=== PATIENT | female | born 1975 | race Caucasian/White ===

== ENCOUNTER → 2016-08-31 | Outpatient (CLI) | payer OTHER ==
--- NOTE | 2016-08-31 16:30 | KCIC ---
EXAM: Bilateral digital screening mammogram. HISTORY: 41-year-old female presents for screening mammography. COMPARISON: None. This is a baseline mammogram. TECHNIQUE: Full field digital craniocaudal and mediolateral oblique views of both breasts are obtained. Computer-aided detection is applied. FINDINGS: Breast parenchymal composition: Level C - Heterogeneously dense. There is asymmetric density within the inferior slightly medial aspect of the left breast, likely due to an island of fibroglandular tissue. There also asymmetries within the right breast which do not persist between projections. There are few benign calcifications. There is no architectural distortion. IMPRESSION: BI-RADS Category 0: Needs additional imaging. Further evaluation with spot compression views and a full field true lateral view of the left breast is recommended given the absence of prior studies to confirm stability. The patient will be contacted to return for additional imaging. This study was interpreted with the benefit of Computerized Aided Detection (CAD). Mammography is not 100% sensitive in detecting breast cancer. Therefore, a self breast exam and a clinical breast exam are very important. A negative mammogram does not negate a clinically suspicious finding and should not result in a delay in biopsying a clinically suspicious abnormality. The patient information was entered into the reminder system with a target for her next mammogram. Electronically signed by: Priscilla Howe (Aug 31, 2016 16:29:07)
== END | disposition home or self-care (01) ==
LOC: KCIC MAMMO 15:39
PROVIDERS: ATTEND Nurse Practitioner Family
DX: Z12.31 Encounter for screening mammogram for malignant neoplasm of breast (principal)
CPT/HCPCS: G0202; 77067

== ENCOUNTER → 2016-09-06 | Outpatient (CLI) | payer OTHER ==
--- NOTE | 2016-09-06 16:18 | RAD ---
DATE: 09/06/16 EXAM: Digital diagnostic left mammogram and left breast ultrasound HISTORY: Follow-up asymmetric density in the screening mammogram COMPARISON: Baseline screening mammogram from 08/31/16 Diagnostic left mammogram: This study was interpreted with the benefit of Computerized Aided Detection (CAD). TECHNIQUE: 90 the mediolateral as well as CC and MLO spot compression views of the left breast are obtained. FINDINGS: The area of apparent asymmetric density seen on the screening mammogram does not clearly persist and appears to blend in with the surrounding fibroglandular tissues. Note is made of a tiny nodularity seen more posteriorly in this area. Exam ultrasound to follow. Left breast ultrasound discussion: Targeted sonographic evaluation of the left breast is performed and images are obtained. Normal fibroglandular densities are seen. There is a well-defined round 3.6 x 4.1 x 4.0 mm nodule with fine internal echoes at 8:00 position, 5 cm from the nipple. IMPRESSION: Asymmetric density seen in the screening mammogram appears to blend in with the surrounding fibroglandular tissues. A small nodularity persists. Tiny 3.6 x 4.1 x 4.0 mm nodule with fine internal echoes is seen at 8:00 position, 5 cm from the nipple. This probably represents a complex cyst. Six-month follow-up left breast mammogram and ultrasound may be obtained to ensure interval stability BI-RADS CATEGORY: 3 PROBABLE BENIGN-SHORT TERM F/U RECOMMENDED FOLLOW-UP: 6M 6 MONTH FOLLOW-UP PQRS compliance statement: Patient information was entered into a reminder system with a target due date for the next mammogram. Mammography is a sensitive method for finding small breast cancers, but it does not detect them all and is not a substitute for careful clinical examination. A negative mammogram does not negate a clinically suspicious finding and should not result in delay in biopsying a clinically suspicious abnormality. "Our facility is accredited by the [employer] Mammography [employer]."
== END | disposition home or self-care (01) ==
LOC: KCIC MAMMO 14:17
PROVIDERS: ATTEND Nurse Practitioner Family
DX: R92.8 Other abnormal and inconclusive findings on diagnostic imaging of breast (principal)
CPT/HCPCS: 76641; G0206; 77065

== ENCOUNTER → 2016-11-09 | Outpatient (CLI) | payer OTHER ==
--- NOTE | 2016-11-09 14:38 | KCIC ---
PROCEDURE Lumbar spine radiographs. HISTORY Neuralgia, neuritis, low back pain into the right side for 2 weeks, no known injury COMPARISON None FINDINGS Three views of the lumbar spine are submitted. There is mild to moderate levoscoliosis centered upon the mid lumbar spine. Lumbar vertebral body stature is maintained. AP alignment is adequate. There is facet degenerative change greater inferiorly of the lumbar spine. Intervertebral disc spaces are relatively maintained. There has been cholecystectomy. Small calcification in the inferior left abdomen is more lateral than expected for a ureteral calculus. IMPRESSION 1. There is mild to moderate lumbar levoscoliosis. Electronically signed by: Mykel Bowser MD (Nov 09, 2016 14:37:04)
== END | disposition home or self-care (01) ==
LOC: KCIC 14:10
PROVIDERS: ATTEND Nurse Practitioner Family
DX: M79.2 Neuralgia and neuritis, unspecified (principal); M54.5 Low back pain; M41.86 Other forms of scoliosis, lumbar region
CPT/HCPCS: 72100

== ENCOUNTER → 2017-03-06 | Outpatient (CLI) | payer OTHER ==
[2017-02-26 14:50] VITALS: BP 140/77
[~2017-03-06] MED LIST: ASPI-482 PO; CETI10TA22 PO; CHOL2000 PO
--- NOTE | 2017-03-06 11:34 | KCIC ---
Indication: TIA one week ago. Hypertensive. Technique: Study is dated March 06, 2017. MRI evaluation of the brain was performed using sagittal T1, axial FLAIR, axial T2, axial T1, axial gradient echo, coronal T2, and axial diffusion with ADC mapping sequences. Comparison is a CT head from February 25, 2017. Findings: The ventricles are normal in size and configuration. There is no evidence of mass, mass-effect, hemorrhage, or extra-axial collection. There is no diffusion restriction to suggest acute infarction. The brainstem and posterior fossa are unremarkable. Pituitary gland and suprasellar region are normal. Orbits are normal. There are maxillary retention cysts bilaterally. There is minimal ethmoid mucosal thickening. There are normal intracranial flow-voids. Impression: No acute intracranial findings. Electronically signed by: Louie Belcher MD (03/06/2017 11:31 AM) [id number]
--- NOTE | 2017-03-07 15:36 | KCIC ---
Carotid Doppler dated 03/06/2017. Comparison none. Clinical Indication: Recent TIA.. Findings: Grayscale, color flow and spectral waveform analysis was performed. Mild plaque at the left carotid bifurcation. No focal stenosis. The waveforms are within normal limits. Flow within the bilateral vertebral arteries is antegrade. Velocity measurements are as follows (centimeters per second ) Peak systolic velocity right left ICA 104 101 CCA 72 79 ECA 86 87 ICA/CCA ratio 1.32 1.23 Impression: No evidence of hemodynamically significant carotid stenosis. Stenosis calculations for carotid ultrasound studies are derived from validated velocity criteria which are known to correlate with the NASCET methodology. Electronically signed by: Henry Wiggins MD (03/07/2017 3:33 PM) [id number]
== END | disposition home or self-care (01) ==
LOC: KCIC US 09:49
PROVIDERS: ATTEND Nurse Practitioner Family
DX: G45.9 Transient cerebral ischemic attack, unspecified (principal); I10 Essential (primary) hypertension
CPT/HCPCS: 70551; 93880

== ENCOUNTER → 2017-03-15 | Outpatient (CLI) | payer OTHER ==
[2017-02-26 14:50] VITALS: BP 140/77
--- NOTE | 2017-03-15 13:19 | KCIC ---
Diagnostic digital mammograms left breast: Reason for examination: Follow-up nodular density. Comparison is made to previous study dated 08/31/2016. The skin and nipple show no abnormalities. No abnormal axillary lymph nodes are seen. The breast parenchyma is heterogeneously dense. (Breast density: Category C.) There continues to be some nodular asymmetry at the lower inner quadrant. This will be further evaluated with ultrasound. There are no other dominant masses, suspicious calcifications or architectural distortion. Impression: Continued presence of some nodular asymmetry at the 7:00 B position of the left breast. Ultrasound to follow. Your patient's mammogram demonstrates that she has dense breast tissue (breast density category C or D), which could hide abnormalities, and if she has other risk factors for breast cancer that have been identified, she might benefit from supplemental screening tests that may be suggested by you as her ordering physician. Dense breast tissue, in and of itself, is a relatively common condition. Therefore, this information is not provided to cause undue concern, but rather to raise your awareness and to promote discussion with your patient regarding the presence of other risk factors, in addition to dense breast tissue. Your patient's mammography results will be sent to her. BI-RAD Category 0: Incomplete. Ultrasound to follow. Left breast ultrasound: Comparison is made to previous study dated 09/06/2016. Ultrasound examination of the medial left breast and the retroareolar and axillary regions of the left breast was performed. There continues to be a small hypoechoic lesion in the 8:00 position measuring approximately 4.2 mm in greatest dimension which shows no significant interval change. There is also a new hypoechoic circumscribed lesion at the 8:30 position 5 cm from the nipple measuring 3.9 mm in greatest dimension showing a partial septation. This probably represents a small septated cyst. There are no other cystic or solid lesions. No abnormal appearing lymph nodes are seen in the axilla. IMPRESSION: 2 benign-appearing hypoechoic lesions at the 8:00 and 8:30 positions. These probably represent complicated cysts. Recommend reevaluation with ultrasound in 6 months. BI-RADS Category 3: Probably Benign. "Our facility is accredited by the [employer] Mammography Program." This patient's information has been entered into a reminder system for the patient to be notified with the results of her examination and a target date for the next mammogram. Electronically signed by: Rosa Enamorado MD (03/15/2017 1:16 PM) [id number]
== END | disposition home or self-care (01) ==
LOC: KCIC MAMMO 09:40
PROVIDERS: ATTEND Nurse Practitioner Family
DX: R92.2 Inconclusive mammogram (principal); N64.89 Other specified disorders of breast
CPT/HCPCS: 76641; G0206; 77065

== ENCOUNTER → 2017-03-21 | Outpatient (CLI) | payer OTHER ==
[2017-02-26 14:50] VITALS: BP 140/77
--- NOTE | 2017-03-22 11:27 | CARD ---
APPROVED REPORT EXAM: Two-dimensional and M-mode echocardiogram with Doppler and color Doppler. Other Information Quality : GoodHR: 78bpm Rhythm : NSR INDICATION CVA/TIA TIA Echo Enhancing Agent Indication: Rule out septal defect Agent/Amount Used: Agitated saline 16mL RISK FACTORS Obesity Smoking 2D DIMENSIONS RVDd3.0 (2.9-3.5cm)Left Atrium(2D)3.7 (1.6-4.0cm) IVSd0.8 (0.7-1.1cm)Aortic Root(2D)3.2 (2.0-3.7cm) LVDd4.7 (3.9-5.9cm)LVOT Diameter2.2 (1.8-2.4cm) PWd0.9 (0.7-1.1cm)LVDs3.1 (2.5-4.0cm) FS (%) 33.5 %SV63.9 ml LVEF(%)62.2 (>50%) Aortic Valve AoV Peak Brody.140.9cm/sAoV VTI28.2cm AO Peak GR.7.9mmHgLVOT Peak Brody.95.3cm/s AO Mean GR.5mmHgAVA (VMAX)2.52cm2 Mitral Valve MV E Wauqiwkk50.5cm/sMV E Peak Gr.5mmHg MV DECEL [id number] A Camxwujm23.0cm/s MV E Mean Gr.2mmHgE/A Ratio1.2 MV A [id number] Pulmonary Valve PV Peak Gplewjll400.3cm/s Tricuspid Valve TR P. Uvqgimfq873nd/sTR Peak Gr.22mmHg Pulmonary Vein S1 Akxfdjcf71.5cm/sD2 Gotzbbzo00.1cm/s LEFT VENTRICLE The left ventricle is normal size. There is normal left ventricular wall thickness. The left ventricu lar systolic function is normal and the ejection fraction is within normal range. The Ejection Fracti on is 60-65%. There is normal LV segmental wall motion. The left ventricular diastolic function and f illing is normal for age. No left ventricle thrombus noted on this study. There is no ventricular sep suellen defect visualized. RIGHT VENTRICLE The right ventricle is normal size. There is normal right ventricular wall thickness. The right ventr icular systolic function is normal. ATRIA The left atrium size is normal. The right atrium size is normal. The interatrial septum is intact wit h no evidence for an atrial septal defect or patent foramen ovale as noted on 2-D or Doppler imaging. Injection of agitated saline documented no clear evidence of an interatrial shunt. AORTIC VALVE The aortic valve is normal in structure and function. The aortic valve is trileaflet. Doppler and Col or Flow revealed no significant aortic regurgitation. There is no significant aortic valvular stenosi s. MITRAL VALVE There is no evidence of mitral valve prolapse. There is no mitral valve stenosis. Doppler and Color F low revealed trace mitral regurgitation. TRICUSPID VALVE Doppler and Color Flow revealed trace to mild tricuspid regurgitation. The pulmonary artery systolic pressure is estimated at 25 mmHg. There is no pulmonary hypertension. PULMONIC VALVE The pulmonic valve is not well visualized but appears to open adequately. Doppler and Color Flow reve aled no pulmonic valvular regurgitation. There is no pulmonic valvular stenosis by spectral Doppler. GREAT VESSELS The aortic root is normal in size. The ascending aorta is normal in size. The pulmonary artery is nor mal. The IVC is normal in size and collapses >50% with inspiration. PERICARDIAL EFFUSION There is no evidence of significant pericardial effusion. Critical Notification Critical Value: No <Conclusion> The left ventricular systolic function is normal and the ejection fraction is within normal range. Th e Ejection Fraction is 60-65%. There is normal LV segmental wall motion. The left ventricular diastolic function and filling is normal for age. The interatrial septum is intact with no evidence for an atrial septal defect or patent foramen ovale as noted on 2-D or Doppler imaging. Injection of agitated saline documented no clear evidence of an interatrial shunt, cannot rule out very subtle small PFO. If there is high clinical suspicion for right to left shunting of thrombus, then recommend FE with b ubble study.
== END | disposition home or self-care (01) ==
LOC: ECHO 12:47
PROVIDERS: ATTEND Nurse Practitioner Family
DX: G45.9 Transient cerebral ischemic attack, unspecified (principal)
CPT/HCPCS: C8929

== ENCOUNTER 2017-04-28 12:00 | Day surgery (SDC) | payer OTHER ==
[~2017-04-28 12:00] MED LIST changes: +HYDROmorphone 2 MG/ML VIAL IV PRN; +IV RINGERS,LACTATED 1000ML 1,000 ML IV SCH; +LIDOCAINE 1% PF 2 ML VIAL. ID PRN; +MORPHINE SULFATE 4 MG/ML DISP.SYRIN. IV PRN; +ONDANSETRON PF 4 MG/2 ML VIAL. IV PRN; +PROCHLORPERAZINE 10 MG/2 ML VIAL. IV PRN; +fentaNYL PF VIAL 100 MCG/2 ML VIAL IV PRN
[2017-04-28] MEDS ORDERED: BENZOCAINE ONE 20% MUCOSAL SPRAY. ×2 (12:57→12:59)
[2017-04-28] MEDS ORDERED: LIDOCAINE 2% TOPICAL JELLY 30GM TUBE. TP ONE (12:57)
[2017-04-28] MEDS ORDERED: LIDOCAINE 2% VISCOUS 15 ML SOLUTION. ONE (12:57)
[2017-04-28] MEDS ORDERED: LIDOCAINE 2% PF Vial for OR 5 ML VIAL. ONE (13:13)
[2017-04-28] MEDS ORDERED: PROPOFOL 40 ML IV ONE (13:13)
[2017-04-28 14:44] VITALS: BP 135/50
--- NOTE | 2017-05-01 12:38 | CARD ---
APPROVED REPORT EXAM: Transesophageal echocardiogram with color flow Doppler. INDICATION CVA/TIA Reason For Test : Rule out cardiac source of emboli. PROCEDURE After obtaining informed consent, patient underwent transesophageal echo in the PACU. Type of Sedation : Conscious Sedation Sedation was achieved with Propofol 400 mg intravenously. Transesophageal probe was inserted and advanced into esophagus by Graeme Ojeda MD. Echo enhancement indication: R/O Septal defect. Echo enhancement agent administered: Agitated Saline The FE was performed without complications. Throughout the procedure, the blood pressure, pulse oximetry, cardiac rhythm, and rate were monitored . The patient tolerated the procedure without adverse effects. Recovery from conscious sedation was une ventful and vital signs were stable. LEFT VENTRICLE The left ventricle is normal size. There is normal left ventricular wall thickness. The left ventricu lar systolic function is normal and the ejection fraction is within normal range. The Ejection Fracti on is 55-60%. There is normal LV segmental wall motion. No left ventricle thrombus noted on this stud y. RIGHT VENTRICLE The right ventricle is normal size. There is normal right ventricular wall thickness. The right ventr icular systolic function is normal. ATRIA The left atrium size is normal. The right atrium size is normal. The interatrial septum is intact wit h no evidence for an atrial septal defect or patent foramen ovale as noted on 2-D or Doppler imaging. Injection of agitated saline bubbles documented no interatrial shunt. There is no thrombus noted in the left atrial appendage. AORTIC VALVE The aortic valve is normal in structure and function. The aortic valve is trileaflet. Doppler and Col or Flow revealed no significant aortic regurgitation. There is no significant aortic valvular stenosi s. MITRAL VALVE The mitral valve is normal in structure and function. There is no evidence of mitral valve prolapse. There is no mitral valve stenosis. Doppler and Color Flow revealed no mitral valve regurgitation note d. TRICUSPID VALVE Doppler and Color Flow revealed no tricuspid valve regurgitation noted. There is no pulmonary hyperte nsion. PULMONIC VALVE The pulmonary valve is not well visualized but appears to open adequately. Doppler and Color Flow rev ealed no pulmonic valvular regurgitation. GREAT VESSELS The aortic root is normal in size. The ascending aorta is normal in size. The pulmonary artery is not visualized, unable to assess. The IVC/SVC were not visualized. Critical Notification Critical Value: No <Conclusion> The left ventricle is normal size. The left ventricular systolic function is normal and the ejection fraction is within normal range. The Ejection Fraction is 55-60%. The interatrial septum is intact with no evidence for an atrial septal defect or patent foramen ovale as noted on 2-D or Doppler imaging. Injection of agitated saline bubbles documented no interatrial shunt. There is no thrombus noted in the left atrial appendage. There is no significant aortic valvular stenosis. Doppler and Color Flow revealed no significant aortic regurgitation. Doppler and Color Flow revealed no mitral valve regurgitation noted. Doppler and Color Flow revealed no tricuspid valve regurgitation noted. There is no pulmonary hypertension.
== END 2017-04-28 14:45 | disposition home or self-care (01) ==
LOC: SURG 12:00
PROVIDERS: ATTEND Internal Medicine Cardiovascular Disease
DX: G45.8 Other transient cerebral ischemic attacks and related syndromes (principal); I63.9 Cerebral infarction, unspecified; F32.9 Major depressive disorder, single episode, unspecified; F17.200 Nicotine dependence, unspecified, uncomplicated; Z86.69 Personal history of other diseases of the nervous system and sense organs; Z90.49 Acquired absence of other specified parts of digestive tract; Z87.39 Personal history of other diseases of the musculoskeletal system and connective tissue; Z90.710 Acquired absence of both cervix and uterus; Z72.89 Other problems related to lifestyle; Z91.048 Other nonmedicinal substance allergy status; Z98.890 Other specified postprocedural states
CPT/HCPCS: 93325; 99152; 99153; C8925; J2704; Q9966; 93312; C8929; J2001

== ENCOUNTER → 2017-09-14 | Outpatient (CLI) | payer OTHER | END | disposition home or self-care (01) | LOC: KCIC MAMMO 13:35 | DX: N63.20 Unspecified lump in the left breast, unspecified quadrant (principal) | CPT/HCPCS: 77066; G0279 ==

== ENCOUNTER → 2018-07-10 | Outpatient (CLI) | payer OTHER ==
[~2018-07-10] MED LIST changes: -HYDROmorphone 2 MG/ML VIAL IV PRN; -IV RINGERS,LACTATED 1000ML 1,000 ML IV SCH; -LIDOCAINE 1% PF 2 ML VIAL. ID PRN; -MORPHINE SULFATE 4 MG/ML DISP.SYRIN. IV PRN; -ONDANSETRON PF 4 MG/2 ML VIAL. IV PRN; -PROCHLORPERAZINE 10 MG/2 ML VIAL. IV PRN; -fentaNYL PF VIAL 100 MCG/2 ML VIAL IV PRN
--- NOTE | 2018-07-10 15:48 | KCIC ---
Two-view chest 07/10/2018 CLINICAL INDICATION: Bronchitis. COMPARISON: Chest 02/25/2017 FINDINGS: Cardiac and mediastinal silhouettes are unremarkable. No pleural effusion, pneumothorax or focal consolidation. IMPRESSION: No acute cardiopulmonary abnormality. Electronically signed by: Homero Lane MD (07/10/2018 3:44 PM) [id number]
== END | disposition home or self-care (01) ==
LOC: KCIC 09:49
PROVIDERS: ATTEND Nurse Practitioner Family
DX: J40 Bronchitis, not specified as acute or chronic (principal)
CPT/HCPCS: 71046

== ENCOUNTER → 2018-11-26 | Outpatient (CLI) | payer OTHER ==
--- NOTE | 2018-11-26 14:56 | KCIC ---
Bilateral diagnostic digital mammograms with 3-D tomosynthesis: Reason for examination: Follow-up nodular asymmetry. Comparison is made to previous studies dated 09/14/2017, 03/15/2017 and 08/31/2016. Bilateral mammograms in CC and oblique projections were obtained with 2-D imaging and 3-D tomosynthesis imaging on a Siemens Inspiration unit and reviewed on the workstation. Interpretation was made with the benefit of CAD. The skin and nipples show no abnormalities. No abnormal axillary lymph nodes are seen. The breast parenchyma is heterogeneously dense. (Breast density: Category C.) There continues to be some nodular asymmetry at the 6B position of the left breast. There are no other dominant masses, suspicious calcifications or architectural distortion. Impression: Persistent nodular asymmetry at the 6:00 B position of the left breast. Ultrasound to follow. Your patient's mammogram demonstrates that she has dense breast tissue (breast density category C or D), which could hide abnormalities, and if she has other risk factors for breast cancer that have been identified, she might benefit from supplemental screening tests that may be suggested by you as her ordering physician. Dense breast tissue, in and of itself, is a relatively common condition. Therefore, this information is not provided to cause undue concern, but rather to raise your awareness and to promote discussion with your patient regarding the presence of other risk factors, in addition to dense breast tissue. Your patient's mammography results will be sent to her. BI-RAD Category 0: Incomplete. Needs additional imaging evaluation. Left breast ultrasound: Comparison is made to previous study dated 03/15/2017. Left whole breast ultrasound including evaluation of all 4 quadrants and the retroareolar and axillary regions of the left breast was performed. There is a small 4.8 mm hypoechoic fibrocystic type lesion at the 5:00 position 5 cm from the nipple. There is a 8.8 mm hypoechoic fibrocystic type nodule in parallel orientation at the 6:00 position 6 cm from the nipple with some adjacent fibrocystic changes. There is still a small focus of fibrocystic-type change at the 8:00 position 5 cm from the nipple measuring 2.5 mm in size which has shown interval decrease in size. Small nodule at the 8:30 position is no longer evident. No abnormal appearing lymph nodes are seen in the left axilla. Impression: New small fibrocystic type lesions at the 5:00 and 6:00 positions. Interval improvement of the small fibrocystic lesion at the 8:00 position. Recommend continued 6 month ultrasound follow-up. BI-RADS Category 3: Probably Benign. "Our facility is accredited by the [employer] Mammography Program." This patient's information has been entered into a reminder system for the patient to be notified with the results of her examination and a target date for the next mammogram. Electronically signed by: Rosa Enamorado MD (11/26/2018 2:53 PM) [id number]
== END | disposition home or self-care (01) ==
LOC: KCIC MAMMO 12:56
PROVIDERS: ATTEND Family Medicine
DX: N64.89 Other specified disorders of breast (principal); N63.24 Unspecified lump in the left breast, lower inner quadrant; Z87.898 Personal history of other specified conditions
CPT/HCPCS: 76641; 77066; G0279; 77062

== ENCOUNTER → 2019-06-12 | Outpatient (CLI) | payer OTHER ==
--- NOTE | 2019-06-12 17:08 | KCIC ---
Left breast ultrasound: Reason for examination: Follow-up nodules. Comparison is made to previous studies dated 11/26/2018 03/15/2017. Ultrasound examination of the left breast and axilla was performed. At the 5:00 position 5 cm from the nipple, there is a hypoechoic nodule measuring 3 mm in greatest. This appears to be slightly smaller than on previous exam. In the 6:00 position 6 cm 4.3 mm hypoechoic circumscribed lesion which has decreased in size consistent with a fibrocystic lesion. In the 8:00 position 5 cm from appears to be 4.5 mm hypoechoic nodule which does not show significant change. New cystic or solid lesions are seen. No abnormal appearing lymph nodes are seen in the axilla. IMPRESSION: Continued presence of benign-appearing nodules in the left breast. Recommend continued 6 month follow-up with ultrasound to verify one year stability of these findings. BI-RADS Category 3: Probably Benign. "Our facility is accredited by the [employer] Mammography [employer]." This patient's information has been entered into a reminder system for the patient to be notified with the results of her examination and a target date for the next mammogram. Electronically signed by: Rosa Enamorado MD (06/12/2019 5:05 PM) [id number]
== END | disposition home or self-care (01) ==
LOC: KCIC US 13:43
PROVIDERS: ATTEND Nurse Practitioner Family
DX: N63.23 Unspecified lump in the left breast, lower outer quadrant (principal); N63.24 Unspecified lump in the left breast, lower inner quadrant
CPT/HCPCS: 76641

== ENCOUNTER → 2021-11-04 | Outpatient (CLI) | payer OTHER ==
[~2021-11-04] MED LIST changes: -CETI10TA22 PO; +CETI10TA74 PO
--- NOTE | 2021-11-04 12:52 | KCIC ---
Bilateral diagnostic digital mammograms with 3-D tomosynthesis: Reason for examination: Follow-up nodules. Comparison is made to previous studies dated back to 03/15/2017. Bilateral mammograms in CC and oblique projections were obtained with 2-D imaging and 3-D tomosynthes is imaging on a Siemens Inspiration unit and reviewed on the workstation. Interpretation was made wit h the benefit of CAD. The skin and nipples show no abnormalities. No abnormal axillary lymph nodes are seen. The breast par enchyma is heterogeneously dense. (Breast density: Category C.) There are no dominant masses, suspici ous calcifications or architectural distortion. Impression: No evidence of malignancy. Ultrasound to follow. Your patient's mammogram demonstrates that she has dense breast tissue (breast density category C or D), which could hide abnormalities, and if she has other risk factors for breast cancer that have bee n identified, she might benefit from supplemental screening tests that may be suggested by you as her ordering physician. Dense breast tissue, in and of itself, is a relatively common condition. Therefo re, this information is not provided to cause undue concern, but rather to raise your awareness and t o promote discussion with your patient regarding the presence of other risk factors, in addition to d ense breast tissue. Your patient's mammography results will be sent to her. BI-RAD Category 0: Incomplete. Needs additional imaging evaluation. Left breast ultrasound: Comparison is made to previous studies dated 06/12/2019 and 11/26/2018. Ultrasound examination of the left breast and axilla was performed. At the 5:00 position, there continues to be a small 2.7 mm hypoechoic fibrocystic lesion which shows a slight decrease in size. At the 6:00 position 6 cm from the nipple, there continues to be a 3.7 mm hypoechoic fibrocystic lesion which shows a slight decrease in size. At the 8:00 position 5 cm from t he nipple, there continues to be a 6.6 a hypoechoic lesion which probably represents a complicated cy st. There are no suspicious nodules seen. No abnormal appearing lymph nodes are seen in the axilla. IMPRESSION: Continued presence of benign-appearing fibrocystic lesions in the left breast. No suspicious lesion s een. Recommend routine mammographic follow-up. BI-RADS Category 2: Benign. "Our facility is accredited by the [employer] Mammography [employer]." This patient's information has been entered into a reminder system for the patient to be notified wit h the results of her examination and a target date for the next mammogram. Electronically signed by: Rosa Enamorado MD (11/04/2021 12:50 PM) [id number]
== END ==
LOC: KCIC MAMMO 07:56
PROVIDERS: ATTEND Nurse Practitioner Family
DX: N64.89 Other specified disorders of breast (principal)
CPT/HCPCS: 76641; 77066; G0279; 77062